=== PATIENT | male | born 1970 | race Caucasian/White ===

== ENCOUNTER 2022-07-06 06:23 | Emergency (ER) | payer BC ==
[2022-07-06 08:24] VITALS: BP 120/80
== END 2022-07-06 08:52 | disposition home or self-care (01) | DRG 556 ==
LOC: ED 06:23
DX: M25.571 Pain in right ankle and joints of right foot (principal); M25.561 Pain in right knee; F17.210 Nicotine dependence, cigarettes, uncomplicated